=== PATIENT | female | born 1965 | race Caucasian/White ===

== ENCOUNTER → 2017-03-16 | Outpatient (CLI) | payer OTHER ==
[~2017-03-16] MED LIST: BREO ELLIPTA 11 EACH PO; CELEXA20 MG PO; ESTRACE1 M1 PO; NORCO 5-325 TA1 EACH PO; PROTONIX40 MG PO; ZOLOFT50 MG PO
== END | disposition home or self-care (01) ==
LOC: CARD 03-09 08:30
DX: R07.2 Precordial pain (principal)

== ENCOUNTER → 2017-05-30 | Outpatient (CLI) | payer OTHER | END | disposition home or self-care (01) | LOC: CT 09:04 | DX: K42.9 Umbilical hernia without obstruction or gangrene (principal); G89.18 Other acute postprocedural pain; R10.33 Periumbilical pain; Z90.49 Acquired absence of other specified parts of digestive tract ==

== ENCOUNTER → 2017-07-12 | Outpatient (CLI) | payer OTHER ==
--- NOTE | ~2017-07-12 | PF ---
[place], [place] PULMONARY FUNCTION TEST NAME: [facility]: [id number] UNIT #: [id number] ROOM: DOCTOR: ABBEY GOMEZ MD,BROCK BIRTHDATE: [birth year] DOS: 07/12/2017 ORDERED BY: Dr. Kathy Hoff. HISTORY OF PRESENT ILLNESS: The patient is a 51-year-old female, height of 62 inches, weight of 135 pounds with past diagnosis of bronchial asthma. The patient reported symptoms of dyspnea with exertion and rare wheezing. There were no past tobacco use. SPIROMETRY: The FVC was recorded 3.44 liters at 102% predicted value. The FEV1 was noted 2.90 liters at 109% predicted value. Ratio of FEV1/FVC was noted normal. Flow volume loop was noted as normal. The spirometry was considered normal. The patient's lung volumes, thoracic gas volume recorded 66%, residual volume 63%, total lung capacity 94%. Lung volumes were noted normal. The lung diffusion was noted normal as 94%. The patient's airway resistance and passive conductance were noted normal. FINAL IMPRESSION: Normal pulmonary function tests. BROCK POTTER MD CM:PFREPORT:PULMONARY FUNCTION TEST [id number] BROCK GOMEZ MD
== END | disposition home or self-care (01) ==
LOC: CP 12:12
DX: J45.909 Unspecified asthma, uncomplicated (principal)

== ENCOUNTER → 2017-11-16 | Outpatient (CLI) | payer OTHER | END | disposition home or self-care (01) | LOC: RAD 14:47 | DX: J45.909 Unspecified asthma, uncomplicated (principal) ==

== ENCOUNTER → 2017-11-30 | Day surgery (SDC) | payer OTHER ==
[~2017-11-30] VITALS: Ht 162.5 cm; Wt 63.5 kg
--- NOTE | ~2017-11-30 | PROC NOTE ---
[place], [place] PROCEDURE NOTE [id number] UNIT #: [id number] ROOM: DOCTOR: TAINA GARCIA MD BIRTHDATE: [birth year] DOS: PREOPERATIVE DIAGNOSES: Rectal bleeding, heartburn. POSTOPERATIVE DIAGNOSES: Rectal bleeding, heartburn. PROCEDURE: EGD with colonoscopy. ENDOSCOPIST: Taina Garcia MD SHUTTLELESS LOOM WEAVER: OVIDIO. ANESTHESIA: MAC. INDICATIONS: This is a 52-year-old lady who is here for a colonoscopy for rectal bleed and EGD for heartburn. Procedure and its complications were explained to the patient in detail preoperatively and she agreed to proceed. DESCRIPTION OF PROCEDURE: After identifying the patient, the patient was brought to the endoscopy suite and placed in the left lateral position. After IV sedation was administered, a timeout procedure was called. A bite block was placed and an adult gastroscope was introduced into the mouth and advanced sequentially into the pharynx, esophagus, stomach and first 2 parts of the duodenum. Each of these structures was found to be within normal limits. The scope was retroflexed in the stomach and then withdrawn. Attention was then turned towards the colonoscopy. A digital rectal exam was performed and was within normal limits. An adult colonoscope was now introduced into the anal canal and advanced sequentially into the rectum, sigmoid colon, descending colon, transverse colon, ascending colon up to the cecum. The prep was found to be optimal. Upon reaching the cecum, the scope was withdrawn. Total withdrawal time was approximately 6 minutes and 30 seconds. There was no obvious bleeding area that could be seen. There were no mucosal abnormalities. The scope was withdrawn and the patient was taken to the recovery in a stable fashion. There were no complications. Dr. Taina Garcia, the attending endoscopist, was present throughout the operating case. Taina Garcia MD CM:PROCNOTE:PROCEDURE NOTE [id number] TAINA GARCIA MD
[2017-11-30 11:52] VITALS: BP 120/68
[2017-11-30 13:24] VITALS: BP 109/61
[2017-11-30 13:35] VITALS: BP 117/68
[2017-11-30 13:51] VITALS: BP 126/71
== END | disposition home or self-care (01) ==
LOC: SDC 11-29 08:00
DX: K62.5 Hemorrhage of anus and rectum (principal); R12 Heartburn; F32.9 Major depressive disorder, single episode, unspecified; J45.909 Unspecified asthma, uncomplicated; Z90.710 Acquired absence of both cervix and uterus; Z90.49 Acquired absence of other specified parts of digestive tract; Z79.899 Other long term (current) drug therapy; Z82.49 Family history of ischemic heart disease and other diseases of the circulatory system

== ENCOUNTER → 2018-03-29 | Outpatient (CLI) | payer OTHER | END | disposition home or self-care (01) | LOC: RAD 11:53 | DX: M25.561 Pain in right knee (principal); Z91.81 History of falling ==

== ENCOUNTER → 2018-05-05 | Outpatient (CLI) | payer OTHER ==
[2018-05-05 07:19] LABS: BUN 21 mg/dl (7-24); CHLORIDE 108 mmol/L (98-107); CHOLESTEROL 215 mg/dL (<200); CREATININE 0.67 mg/dL (0.55-1.02); POTASSIUM 4.1 mmol/L (3.5-5.1); SGOT/AST 19 IU/L (3-35); SGPT/ALT 24 U/L (12-78); SODIUM 142 mmol/L (136-145); TOTAL PROTEIN 7.5 gm/dL (6.4-8.2)
[2018-05-05 07:20] LABS: ALKALINE PHOSPHATASE 73 U/L (45-117); HDL CHOLESTEROL 47 mg/dl (40-60); LDL CHOLESTEROL 147 mg/dL (9-159); TRIGLYCERIDES 107 mg/dl (<150); VLDL CHOLESTEROL 21 mg/dL (6-40)
== END | disposition home or self-care (01) ==
LOC: LAB 06:27
PROVIDERS: Internal Medicine
DX: Z13.220 Encounter for screening for lipoid disorders (principal)

== ENCOUNTER → 2018-12-10 | Outpatient (CLI) | payer OTHER ==
[~2018-12-10] MED LIST changes: +ALBUTEROL2.5 MG/0.5 INH; +PREDNISONE50 MG PO; +ZITHROMAX250 MG PO; +ZOFRAN4 MG PO
== END | disposition home or self-care (01) ==
LOC: ORTHO
DX: M25.521 Pain in right elbow (principal)

== ENCOUNTER → 2018-12-31 | Outpatient (CLI) | payer OTHER | END | disposition home or self-care (01) | LOC: RAD 09:17 | DX: M79.89 Other specified soft tissue disorders (principal); M25.521 Pain in right elbow ==

== ENCOUNTER → 2019-01-31 | Outpatient (CLI) | payer OTHER | END | disposition home or self-care (01) | LOC: MAMMO 09:00 | DX: Z12.31 Encounter for screening mammogram for malignant neoplasm of breast (principal) ==

== ENCOUNTER 2019-03-12 10:16 | Emergency (ER) | payer OTHER ==
[~2019-03-12] VITALS: Ht 162.5 cm; Wt 63.5 kg
[~2019-03-12 10:16] MED LIST changes: -ALBUTEROL2.5 MG/0.5 INH; -PREDNISONE50 MG PO; -ZITHROMAX250 MG PO; -ZOFRAN4 MG PO
[2019-03-12 10:37] LABS: BASO # 0.1 10*3/uL (0.0-0.1); BASO % 0.6 % (0.0-1.0); EOS # 0.9 10*3/uL (0.0-0.4); EOS % 8.9 % (1.0-4.0); HEMOGLOBIN 15.5 g/dl (12.0-16.0); LYMPH # 1.3 10*3/uL (1.3-4.4); LYMPH % 13.3 % (27.0-41.0); MEAN CELL VOLUME 91.5 fl (81.0-99.0); MEAN CORPUSCULAR HGB 30.8 pg (27.0-31.0); MEAN CORPUSCULAR HGB CONC 33.7 g/dl (33.0-37.0); MEAN PLATELET VOLUME 9.8 fl (9.6-12.3); MONO # 0.6 10*3/uL (0.1-1.0); MONO % 5.6 % (3.0-9.0); NEUT # 7.1 10*3/uL (2.3-7.9); NEUT % 71.3 % (47.0-73.0); PLATELET COUNT AUTOMATED 244 10*3/uL (130-400); RED BLOOD COUNT 5.03 10*6/uL (4.10-5.10); RED CELL DISTRI WIDTH 12.9 % (0-14.5); WHITE BLOOD COUNT 9.9 10*3/uL (4.8-10.8)
[2019-03-12 10:52] LABS: ALBUMIN 4.7 gm/dl (3.1-4.5); ALKALINE PHOSPHATASE 82 U/L (45-117); BUN 27 mg/dl (7-24); CHLORIDE 105 mmol/L (98-107); LIPASE 79 U/L (73-393); POTASSIUM 4.5 mmol/L (3.5-5.1); SGOT/AST 16 IU/L (3-35); SGPT/ALT 21 U/L (12-78); SODIUM 138 mmol/L (136-145); TOTAL PROTEIN 8.5 gm/dL (6.4-8.2)
[2019-03-12 11:42] VITALS: BP 117/63
[2019-03-12] MEDS ORDERED: ZOFRAN4 MG PO (11:45)
== END 2019-03-12 11:50 | disposition home or self-care (01) ==
LOC: ED 10:16
PROVIDERS: Physician Assistant
DX: K52.9 Noninfective gastroenteritis and colitis, unspecified (principal); Z79.899 Other long term (current) drug therapy; Z90.710 Acquired absence of both cervix and uterus; Z90.49 Acquired absence of other specified parts of digestive tract

== ENCOUNTER 2019-04-01 10:30 | Emergency (ER) | payer OTHER ==
[~2019-04-01] VITALS: Ht 160 cm; Wt 63.5 kg
[~2019-04-01 10:30] MED LIST changes: +ZOFRAN4 MG PO
[2019-04-01 10:32] VITALS: BP 128/77
[2019-04-01] MEDS ORDERED: PREDNISONE50 MG PO (11:34)
[2019-04-01] MEDS ORDERED: ZITHROMAX250 MG PO (11:34)
[2019-04-01] MEDS ORDERED: ALBUTEROL2.5 MG/0.5 INH (11:34)
== END 2019-04-01 11:45 | disposition home or self-care (01) ==
LOC: ED 10:30
DX: J20.9 Acute bronchitis, unspecified (principal); Z79.899 Other long term (current) drug therapy

== ENCOUNTER → 2019-04-17 | Outpatient (CLI) | payer OTHER ==
[~2019-04-17] MED LIST changes: +ALBUTEROL2.5 MG/0.5 INH; +PREDNISONE50 MG PO; +ZITHROMAX250 MG PO
== END | disposition home or self-care (01) ==
LOC: LAB 12:04
DX: R05 Cough (principal)

== ENCOUNTER → 2019-06-10 | Outpatient (CLI) | payer OTHER ==
[~2019-06-10] MED LIST changes: +ESOMEPRAZOLE MA20 MG PO; +ESTROVEN 155 M155 MG PO; +PROBIOTIC250 MG PO; +QVAR REDIHALE10.6 GM INH; +SINGULAIR10 M1 PO; +VIIBRYD20 M1 PO; +WOMEN'S 50 PLU1 EACH PO
--- NOTE | ~2019-06-10 | PF ---
[place], [place] PULMONARY FUNCTION TEST [id number] UNIT #: [id number] ROOM: DOCTOR: ABBEY GOMEZ MD,BROCK BIRTHDATE: [birth year] DOS: 06/10/2019 Ordered from office. HISTORY: The patient is a 53-year-old female, height of 64 inches, weight 239 pounds, BMI 23.9. . active tobacco use. There were no past tobacco use. SPIROMETRY: FVC 3.16 liters, 94% predicted value, FEV1 2.68 liters, 100% predicted value. Ratio FEV1/FVC 85%. Post-bronchodilator, no changes occurred. Flow volume loop was noted as mild obstructive airway. LUNG VOLUME: Thoracic gas volume recorded 75%, residual volume 78%, and total lung capacity 98%. The patient had resistance and passive conductance noted normal. The patient's lung diffusion noted borderline low normal range. FINAL IMPRESSION: Normal pulmonary function tests were noted. Clinical correlation would be advised. BROCK POTTER MD CM:PFREPORT:PULMONARY FUNCTION TEST [id number] BROCK GOMEZ MD
== END | disposition home or self-care (01) ==
LOC: CP 08:23
DX: J43.2 Centrilobular emphysema (principal)

== ENCOUNTER → 2019-07-02 | Outpatient (CLI) | payer OTHER | END | disposition home or self-care (01) | LOC: RESCLI 09:47 | DX: K21.9 Gastro-esophageal reflux disease without esophagitis (principal); J45.20 Mild intermittent asthma, uncomplicated; F41.9 Anxiety disorder, unspecified; J30.2 Other seasonal allergic rhinitis; R10.13 Epigastric pain; Z13.31 Encounter for screening for depression; Z13.39 Encounter for screening examination for other mental health and behavioral disorders; Z76.89 Persons encountering health services in other specified circumstances; Z79.899 Other long term (current) drug therapy; Z88.8 Allergy status to other drugs, medicaments and biological substances ==

== ENCOUNTER → 2019-07-03 | Outpatient (CLI) | payer OTHER ==
[2019-07-03 07:51] LABS: BASO # 0.1 10*3/uL (0.0-0.1); BASO % 1.2 % (0.0-1.0); EOS # 0.6 10*3/uL (0.0-0.4); EOS % 13.6 % (1.0-4.0); HEMATOCRIT 40.1 % (37.0-47.0); LYMPH # 1.1 10*3/uL (1.3-4.4); LYMPH % 25.2 % (27.0-41.0); MEAN CELL VOLUME 92.6 fl (81.0-99.0); MEAN CORPUSCULAR HGB CONC 32.4 g/dl (33.0-37.0); MEAN PLATELET VOLUME 9.7 fl (9.6-12.3); MONO # 0.4 10*3/uL (0.1-1.0); MONO % 9.9 % (3.0-9.0); NEUT # 2.2 10*3/uL (2.3-7.9); NEUT % 49.6 % (47.0-73.0); PLATELET COUNT AUTOMATED 208 10*3/uL (130-400); RED BLOOD COUNT 4.33 10*6/uL (4.10-5.10); RED CELL DISTRI WIDTH 12.9 % (0-14.5); WHITE BLOOD COUNT 4.3 10*3/uL (4.8-10.8)
[2019-07-03 08:11] LABS: ALBUMIN 3.9 gm/dl (3.1-4.5); ALKALINE PHOSPHATASE 71 U/L (45-117); BUN 17 mg/dl (7-24); CHLORIDE 106 mmol/L (98-107); CHOLESTEROL 203 mg/dL (<200); CREATININE 0.73 mg/dL (0.55-1.02); HDL CHOLESTEROL 47 mg/dl (40-60); LDL CHOLESTEROL 118 mg/dL (9-159); LIPASE 136 U/L (73-393); POTASSIUM 4.7 mmol/L (3.5-5.1); SGOT/AST 16 IU/L (3-35); SGPT/ALT 24 U/L (12-78); SODIUM 142 mmol/L (136-145); TOTAL PROTEIN 7.3 gm/dL (6.4-8.2); TRIGLYCERIDES 188 mg/dl (<150); VLDL CHOLESTEROL 38 mg/dL (6-40)
== END | disposition home or self-care (01) ==
LOC: LAB 00:15 → US 07:00
PROVIDERS: Internal Medicine
DX: K76.89 Other specified diseases of liver (principal); R10.13 Epigastric pain; Z76.89 Persons encountering health services in other specified circumstances; Z90.49 Acquired absence of other specified parts of digestive tract

== ENCOUNTER 2019-07-05 19:43 | Inpatient (IN) | payer OTHER ==
[~2019-07-05] VITALS: Ht 162.6 cm; Wt 65.3 kg
[~2019-07-05 19:43] MED LIST changes: -ESOMEPRAZOLE MA20 MG PO; -ESTROVEN 155 M155 MG PO; -PROBIOTIC250 MG PO; -QVAR REDIHALE10.6 GM INH; -SINGULAIR10 M1 PO; -VIIBRYD20 M1 PO; -WOMEN'S 50 PLU1 EACH PO
[2019-07-05 19:47] VITALS: BP 148/75
[2019-07-05 20:32] LABS: BASO % 0.4 % (0.0-1.0); EOS # 0.3 10*3/uL (0.0-0.4); HEMATOCRIT 44.1 % (37.0-47.0); HEMOGLOBIN 14.7 g/dl (12.0-16.0); LYMPH # 0.8 10*3/uL (1.3-4.4); LYMPH % 9.2 % (27.0-41.0); MEAN CELL VOLUME 90.9 fl (81.0-99.0); MEAN CORPUSCULAR HGB 30.3 pg (27.0-31.0); MEAN CORPUSCULAR HGB CONC 33.3 g/dl (33.0-37.0); MEAN PLATELET VOLUME 9.8 fl (9.6-12.3); MONO # 0.5 10*3/uL (0.1-1.0); MONO % 4.9 % (3.0-9.0); NEUT # 7.5 10*3/uL (2.3-7.9); NEUT % 82.3 % (47.0-73.0); PLATELET COUNT AUTOMATED 224 10*3/uL (130-400); RED BLOOD COUNT 4.85 10*6/uL (4.10-5.10); WHITE BLOOD COUNT 9.1 10*3/uL (4.8-10.8)
--- NOTE | 2019-07-05 20:38 | NUR ---
PATIENT STATES THAT HER PAIN IS MUCH BETTER THEN BEFORE. PATIENT STATES THAT HER PAIN IS A 5 OUT OF 10. NO COMPLAINTS AT THIS TIME.
[2019-07-05 20:44] LABS: ALBUMIN 4.4 gm/dl (3.1-4.5); ALKALINE PHOSPHATASE 80 U/L (45-117); BUN 25 mg/dl (7-24); CHLORIDE 107 mmol/L (98-107); CREATININE 0.75 mg/dL (0.55-1.02); LIPASE 94 U/L (73-393); POTASSIUM 3.5 mmol/L (3.5-5.1); SGOT/AST 25 IU/L (3-35); SGPT/ALT 31 U/L (12-78); SODIUM 139 mmol/L (136-145); TOTAL PROTEIN 8.1 gm/dL (6.4-8.2)
[2019-07-05 22:20] VITALS: BP 118/77
--- NOTE | 2019-07-05 22:20 | NUR ---
A 53, admitted to , under the services of JOSSELIN Hylton DO with a diagnosis of PARTIAL SMALL BOWEL OBSTRUCTION. Chief complaint is ABDOMINAL PAIN. Patient arrived via bed from ER. Monitor applied. Initial assessment completed. Vital signs taken and recorded. JOSSELIN HYLTON DO notified of admission to the unit. Orders received. See assessment for past medical history, medications and allergies. Patient and/or family oriented to unit. [address] visitation policy reviewed. Clothing/patient valuable form completed. NO WOUNDS ON ADMISSIONS. SKIN WDI. NO FLU VACCINE THIS ADMISSION PT HAS BEEN VACCINATED THIS FLU SEASON. BRIANNA NELSON
[2019-07-05] MEDS ORDERED: VIIBRYD20 M1 PO (22:26)
[2019-07-05] MEDS ORDERED: SINGULAIR10 M1 PO (22:26)
[2019-07-05] MEDS ORDERED: PROBIOTIC250 MG PO (22:27)
[2019-07-05] MEDS ORDERED: WOMEN'S 50 PLU1 EACH PO (22:27)
[2019-07-05] MEDS ORDERED: ESTROVEN 155 M155 MG PO (22:28)
--- NOTE | 2019-07-05 22:47 | NUR ---
PT REFUSING TEDS AT THIS TIME.
--- NOTE | 2019-07-05 22:47 | NUR ---
PT WILL NOT RECEIVE FLU VACCINE THIS ADMISSION SHE HAS BEEN VACCINATED THIS FLU SEASON.
--- NOTE | 2019-07-05 23:23 | NUR ---
DR HERNANDEZ NOTIFIED OF UPDATED MED REC AT THIS TIME. ALSO INFORMED HIM OF PT C/O LOOSE STOOLS. NO NEW ORDERS WILL CONTINUE TO MONITOR.
[2019-07-06] VITALS: BP 118/77
[2019-07-06 07:03] LABS: BUN 27 mg/dl (7-24); CHLORIDE 112 mmol/L (98-107); CREATININE 0.61 mg/dL (0.55-1.02); PHOSPHOROUS 3.5 mg/dL (2.5-4.9); POTASSIUM 3.7 mmol/L (3.5-5.1); SODIUM 143 mmol/L (136-145)
[2019-07-06 08:00] VITALS: BP 112/84
[2019-07-06 10:58] LABS: BILIRUBIN NEGATIVE (NEGATIVE); BLOOD 1+ (NEGATIVE); CLARITY SL CLOUDY (CLEAR); COLOR YELLOW (YELLOW); GLUCOSE NEGATIVE (NEGATIVE); KETONE NEGATIVE (NEGATIVE); LEUKO ESTERASE NEGATIVE (NEGATIVE); NITRITE NEGATIVE (NEGATIVE); SPECIFIC GRAVITY 1.025 (1.005-1.030); UROBILINOGEN 0.2 E.U./dl (0.2-1.0)
[2019-07-06 11:10] LABS: BACTERIA 2+; MUCOUS 2+
[2019-07-06 12:00] VITALS: BP 108/60
--- NOTE | 2019-07-06 14:59 | NUR ---
TYLEONOL GIVEN FOR C/O HAEADACHE. WILL MONITOR.
[2019-07-06 16:00] VITALS: BP 107/70
[2019-07-06 20:00] VITALS: BP 104/64
--- NOTE | 2019-07-06 22:00 | NUR ---
PATIENT RESTING IN BED WITH EYES OPEN WATCHING TV. DENIES COMPLAINTS OF PAIN OR DISCOMFORT. SAYS SHE STILL HAS DIARRHEA A LITTLE. RESPIRATIONS REGULAR AND NON-LABORED. VITAL SIGNS STABLE. LUNGS CLEAR ON ROOM AIR. WILL CONTINUE TO MOITOR. CALL LIGHT IN REACH.
[2019-07-07] VITALS: BP 113/64
[2019-07-07 06:26] LABS: BASO % 0.8 % (0.0-1.0); EOS # 0.6 10*3/uL (0.0-0.4); EOS % 14.4 % (1.0-4.0); HEMATOCRIT 37.3 % (37.0-47.0); HEMOGLOBIN 12.2 g/dl (12.0-16.0); LYMPH # 1.3 10*3/uL (1.3-4.4); LYMPH % 31.6 % (27.0-41.0); MEAN CELL VOLUME 92.6 fl (81.0-99.0); MEAN CORPUSCULAR HGB 30.3 pg (27.0-31.0); MEAN CORPUSCULAR HGB CONC 32.7 g/dl (33.0-37.0); MEAN PLATELET VOLUME 9.6 fl (9.6-12.3); MONO # 0.4 10*3/uL (0.1-1.0); MONO % 11.1 % (3.0-9.0); NEUT # 1.7 10*3/uL (2.3-7.9); NEUT % 41.8 % (47.0-73.0); PLATELET COUNT AUTOMATED 164 10*3/uL (130-400); RED BLOOD COUNT 4.03 10*6/uL (4.10-5.10)
[2019-07-07 06:51] LABS: ALBUMIN 3.4 gm/dl (3.1-4.5); ALKALINE PHOSPHATASE 57 U/L (45-117); BUN 13 mg/dl (7-24); CHLORIDE 114 mmol/L (98-107); CREATININE 0.71 mg/dL (0.55-1.02); POTASSIUM 3.8 mmol/L (3.5-5.1); SGOT/AST 29 IU/L (3-35); SGPT/ALT 34 U/L (12-78); SODIUM 145 mmol/L (136-145); TOTAL PROTEIN 6.2 gm/dL (6.4-8.2)
--- NOTE | 2019-07-07 08:00 | NUR ---
DR HERNANDEZ HERE TO ASSESS PATIENT AND DISCUSS PLAN OF CARE
[2019-07-07 09:00] VITALS: BP 138/79
--- NOTE | 2019-07-07 09:00 | NUR ---
RESTING IN BED WITH NO DISTRESS NOTED. RESPIRATIONS EASY. LUNGS DIMINISHED, CLEAR. PULSE OX 96% RA. ABD SOFT WITH HYPOACTIVE BOWEL SOUNDS, C/O LUQ TENDERNESS. DENIES N/V, CONTINUES TO HAVE LOOSE STOOLS. CALL LIGHT WITHIN REACH. NO VOICED COMPLAINTS.
--- NOTE | 2019-07-07 10:00 | NUR ---
AMBULATING HALLWAY. NO DISTRESS NOTED
--- NOTE | 2019-07-07 10:15 | NUR ---
DR GOLDBERG CONTACTED REGARDING CONSULT. WILL SEE TOMORROW
--- NOTE | 2019-07-07 10:55 | NUR ---
TRANSPORTED OFF FLOOR VIA WC FOR TESTING
--- NOTE | 2019-07-07 11:10 | NUR ---
RETURNED FROM TESTING
[2019-07-07 12:00] VITALS: BP 118/70
[2019-07-07] MEDS ORDERED: ESOMEPRAZOLE MA20 MG PO (12:31)
[2019-07-07] MEDS ORDERED: QVAR REDIHALE10.6 GM INH (12:31)
--- NOTE | 2019-07-07 13:00 | NUR ---
VISITING WITH FAMILY. NO DISTRESS NOTED
[2019-07-07 16:00] VITALS: BP 108/61
--- NOTE | 2019-07-07 16:00 | NUR ---
RESTING IN BED WITH NO DISTRESS NOTED. RESPIRATIONS EASY. VSS. CALL LIGHT WITHIN REACH. NO VOICED COMPLAINTS
[2019-07-07 20:00] VITALS: BP 100/65
--- NOTE | 2019-07-07 22:30 | NUR ---
PATIENT WALKED UP TO NURSE'S STATION VISITING WITH STAFF AT THIS TIME. RESPIRATIONS REGULAR AND NON-LABORED ON ROOM AIR. DENIES COMPLAINTS OF PAIN OR DISCOMFORT. STATES SHE IS FEELING BETTER TODAY BUT IS STILL A LITTLE CRAMPY. NO SIGNS OR SYMPTOMS OF DISTRESS NOTED. WILL CONTINUE TO MONITOR. CALL LIGHT IN REACH.
[2019-07-08] VITALS: BP 124/66
--- NOTE | 2019-07-08 01:23 | NUR ---
24 HR chart check completed.
[2019-07-08 08:00] VITALS: BP 135/88
--- NOTE | 2019-07-08 09:00 | NUR ---
Web Producer in to talk to patient. Patient states lives at home with . There are few steps in the home. Physician: [facility] Pharmacy: [facility] Home health services: none Patient's level of ADLs: INDEPENDENT Patient has working utilities: all working DME: none Follow-up physician's appointment after d/c: will be made by hospitalist nurse director upon discharge Does patient want to access PORTAL?: no Discharge plan discussed with patient, she states she lives at home with , she is independent in adls and ambulation works, drives, she will return to home when medically stable and denies any home needs. NIXON MCKEON
--- NOTE | 2019-07-08 10:31 | NUR ---
Dr. Mendiola in and examined pt. States pt may go home from his standpoint. Notified Senait Torres NP.
--- NOTE | 2019-07-08 11:07 | NUR ---
Discharge instructions reviewed with patient/family. Patient receptive and verbalizes understanding. Follow-up care arranged. Written instructions given to patient/family. Pt declined assistance out. DC via ambulatory, iv site removed. LAVINIA ROGERS
== END 2019-07-08 11:07 | disposition home or self-care (01) | DRG 390 ==
LOC: ED 19:43 → 4E 22:01 → EDHOLD 22:01 → 4E 22:10
PROVIDERS: Nurse Practitioner Family; Student in an Organized Health Care Education/Training Program; ADMIT Emergency Medicine
DX: K56.600 Partial intestinal obstruction, unspecified as to cause (principal); K76.89 Other specified diseases of liver; K59.00 Constipation, unspecified; J45.909 Unspecified asthma, uncomplicated; K57.90 Diverticulosis of intestine, part unspecified, without perforation or abscess without bleeding; R73.9 Hyperglycemia, unspecified; E83.41 Hypermagnesemia; F32.9 Major depressive disorder, single episode, unspecified; Z90.49 Acquired absence of other specified parts of digestive tract; Z90.710 Acquired absence of both cervix and uterus; Z82.49 Family history of ischemic heart disease and other diseases of the circulatory system; Z80.3 Family history of malignant neoplasm of breast; Z79.899 Other long term (current) drug therapy

== ENCOUNTER → 2019-07-05 | Outpatient (CLI) | payer OTHER | END | disposition home or self-care (01) | LOC: CT 11:55 | DX: R10.13 Epigastric pain (principal) ==

== ENCOUNTER → 2019-08-07 | Outpatient (CLI) | payer OTHER ==
[~2019-08-07] MED LIST changes: +ESOMEPRAZOLE MA20 MG PO; +ESTROVEN 155 M155 MG PO; +PROBIOTIC250 MG PO; +QVAR REDIHALE10.6 GM INH; +SINGULAIR10 M1 PO; +VIIBRYD20 M1 PO; +WOMEN'S 50 PLU1 EACH PO
== END | disposition home or self-care (01) ==
LOC: RESCLI 01:15
DX: Z09 Encounter for follow-up examination after completed treatment for conditions other than malignant neoplasm (principal); J45.20 Mild intermittent asthma, uncomplicated; J30.2 Other seasonal allergic rhinitis; K21.9 Gastro-esophageal reflux disease without esophagitis; N95.1 Menopausal and female climacteric states; F41.9 Anxiety disorder, unspecified; E78.5 Hyperlipidemia, unspecified; Z79.899 Other long term (current) drug therapy; Z90.49 Acquired absence of other specified parts of digestive tract; Z90.89 Acquired absence of other organs

== ENCOUNTER → 2020-02-12 | Outpatient (CLI) | payer OTHER | END | disposition home or self-care (01) | LOC: RAD 10:42 | DX: K59.00 Constipation, unspecified (principal) ==

== ENCOUNTER → 2020-02-13 | Outpatient (CLI) | payer OTHER | END | disposition home or self-care (01) | LOC: CT 10:12 | DX: K42.9 Umbilical hernia without obstruction or gangrene (principal); K59.00 Constipation, unspecified; K76.89 Other specified diseases of liver; Z87.19 Personal history of other diseases of the digestive system; Z90.710 Acquired absence of both cervix and uterus; Z90.49 Acquired absence of other specified parts of digestive tract ==

== ENCOUNTER → 2020-04-17 | Outpatient (CLI) | payer OTHER ==
[~2020-04-17] MED LIST changes: +CELEXA10 MG PO
== END | disposition home or self-care (01) ==
LOC: COVID19 00:49
DX: Z20.828 Contact with and (suspected) exposure to other viral communicable diseases (principal)

== ENCOUNTER → 2020-04-24 | Day surgery (SDC) | payer OTHER ==
[~2020-04-24] VITALS: Ht 160 cm; Wt 67.1 kg
[2020-04-24 07:30] VITALS: BP 126/72
[2020-04-24 08:29] VITALS: BP 98/54
[2020-04-24 08:44] VITALS: BP 104/65
[2020-04-24 08:59] VITALS: BP 101/61
== END | disposition home or self-care (01) ==
LOC: SDC 04-21 08:00
PROVIDERS: ATTEND Internal Medicine Gastroenterology
DX: R10.9 Unspecified abdominal pain (principal); K56.609 Unspecified intestinal obstruction, unspecified as to partial versus complete obstruction; K44.9 Diaphragmatic hernia without obstruction or gangrene; K29.70 Gastritis, unspecified, without bleeding; K64.8 Other hemorrhoids; K21.9 Gastro-esophageal reflux disease without esophagitis; F41.9 Anxiety disorder, unspecified; J45.909 Unspecified asthma, uncomplicated; Z98.890 Other specified postprocedural states; Z79.899 Other long term (current) drug therapy; Z82.49 Family history of ischemic heart disease and other diseases of the circulatory system

== ENCOUNTER → 2020-06-26 | Outpatient (CLI) | payer OTHER ==
[2020-06-26 06:05] LABS: BASO # 0.1 10*3/uL (0.0-0.1); BASO % 1.2 % (0.0-1.0); EOS # 0.6 10*3/uL (0.0-0.4); EOS % 12.4 % (1.0-4.0); HEMATOCRIT 40.6 % (37.0-47.0); LYMPH # 1.7 10*3/uL (1.3-4.4); LYMPH % 33.7 % (27.0-41.0); MEAN CELL VOLUME 89.4 fl (81.0-99.0); MEAN CORPUSCULAR HGB 29.5 pg (27.0-31.0); MEAN PLATELET VOLUME 9.5 fl (9.6-12.3); MONO # 0.4 10*3/uL (0.1-1.0); MONO % 8.7 % (3.0-9.0); NEUT # 2.2 10*3/uL (2.3-7.9); NEUT % 43.6 % (47.0-73.0); PLATELET COUNT AUTOMATED 203 10*3/uL (130-400); RED BLOOD COUNT 4.54 10*6/uL (4.10-5.10); RED CELL DISTRI WIDTH 12.5 % (0-14.5); WHITE BLOOD COUNT 5.1 10*3/uL (4.8-10.8)
[2020-06-26 06:34] LABS: BUN 17 mg/dl (7-24); CHLORIDE 109 mmol/L (98-107); CHOLESTEROL 229 mg/dL (<200); CREATININE 0.69 mg/dL (0.55-1.02); POTASSIUM 3.9 mmol/L (3.5-5.1); SGOT/AST 17 IU/L (3-35); SGPT/ALT 21 U/L (12-78); SODIUM 142 mmol/L (136-145); TOTAL PROTEIN 7.4 gm/dL (6.4-8.2); TRIGLYCERIDES 140 mg/dl (<150); VLDL CHOLESTEROL 28 mg/dL (6-40)
[2020-06-26 06:40] LABS: ALKALINE PHOSPHATASE 66 U/L (45-117); HDL CHOLESTEROL 50 mg/dl (40-60); LDL CHOLESTEROL 151 mg/dL (9-159)
[2020-06-26 07:23] LABS: VITAMIN D, 25-HYDROXY 43.6 ng/mL (30-100)
== END | disposition home or self-care (01) ==
LOC: LAB 05:42
PROVIDERS: Student in an Organized Health Care Education/Training Program; ATTEND Internal Medicine Nephrology
DX: F32.9 Major depressive disorder, single episode, unspecified (principal); R53.83 Other fatigue

== ENCOUNTER 2020-12-15 14:28 | Emergency (ER) | payer OTHER ==
[~2020-12-15] VITALS: Ht 160 cm; Wt 65.8 kg
[2020-12-15 14:32] VITALS: BP 128/78
== END 2020-12-15 16:39 | disposition home or self-care (01) ==
LOC: ED 14:28
DX: S82.61XA Displaced fracture of lateral malleolus of right fibula, initial encounter for closed fracture (principal); Z79.899 Other long term (current) drug therapy; Z90.49 Acquired absence of other specified parts of digestive tract; Z90.711 Acquired absence of uterus with remaining cervical stump; W18.40XA Slipping, tripping and stumbling without falling, unspecified, initial encounter; Y93.89 Activity, other specified; Y92.89 Other specified places as the place of occurrence of the external cause; Y99.8 Other external cause status

== ENCOUNTER → 2020-12-17 | Outpatient (CLI) | payer OTHER | END | disposition home or self-care (01) | LOC: ORTHO 13:20 | PROVIDERS: ATTEND Orthopaedic Surgery | DX: S82.61XD Displaced fracture of lateral malleolus of right fibula, subsequent encounter for closed fracture with routine healing (principal); X58.XXXD Exposure to other specified factors, subsequent encounter ==

== ENCOUNTER → 2020-12-24 | Outpatient (CLI) | payer OTHER | END | disposition home or self-care (01) | LOC: ORTHO 13:42 | PROVIDERS: ATTEND Orthopaedic Surgery | DX: S82.61XD Displaced fracture of lateral malleolus of right fibula, subsequent encounter for closed fracture with routine healing (principal); X58.XXXD Exposure to other specified factors, subsequent encounter ==

== ENCOUNTER → 2020-12-31 | Outpatient (CLI) | payer OTHER | END | disposition home or self-care (01) | LOC: ORTHO 00:35 | PROVIDERS: ATTEND Orthopaedic Surgery | DX: S82.61XD Displaced fracture of lateral malleolus of right fibula, subsequent encounter for closed fracture with routine healing (principal); X58.XXXD Exposure to other specified factors, subsequent encounter ==

== ENCOUNTER → 2021-01-22 | Outpatient (CLI) | payer OTHER | END | disposition home or self-care (01) | LOC: ORTHO 01:57 | PROVIDERS: ATTEND Orthopaedic Surgery | DX: S82.844D Nondisplaced bimalleolar fracture of right lower leg, subsequent encounter for closed fracture with routine healing (principal); X58.XXXD Exposure to other specified factors, subsequent encounter ==

== ENCOUNTER → 2021-01-27 | Outpatient (CLI) | payer OTHER | END | disposition home or self-care (01) | LOC: ORTHO 01:57 → RAD 18:53 → ORTHO 18:57 | PROVIDERS: ATTEND Orthopaedic Surgery | DX: S82.434D Nondisplaced oblique fracture of shaft of right fibula, subsequent encounter for closed fracture with routine healing (principal); X58.XXXD Exposure to other specified factors, subsequent encounter ==

== ENCOUNTER → 2021-03-08 | Outpatient (CLI) | payer OTHER | END | disposition home or self-care (01) | LOC: ORTHO 00:17 | PROVIDERS: ATTEND Orthopaedic Surgery | DX: S82.431A Displaced oblique fracture of shaft of right fibula, initial encounter for closed fracture (principal); M25.471 Effusion, right ankle; S82.844D Nondisplaced bimalleolar fracture of right lower leg, subsequent encounter for closed fracture with routine healing; X58.XXXD Exposure to other specified factors, subsequent encounter; X58.XXXA Exposure to other specified factors, initial encounter; Y93.89 Activity, other specified; Y92.89 Other specified places as the place of occurrence of the external cause; Y99.8 Other external cause status ==

== ENCOUNTER → 2021-05-09 | Outpatient (CLI) | payer OTHER | END | disposition home or self-care (01) | LOC: RAD 08:02 | PROVIDERS: ATTEND Internal Medicine | DX: M25.571 Pain in right ankle and joints of right foot (principal); R22.41 Localized swelling, mass and lump, right lower limb; Z87.81 Personal history of (healed) traumatic fracture ==

== ENCOUNTER → 2021-09-01 | Outpatient (CLI) | payer OTHER | END | disposition home or self-care (01) | LOC: MRI 00:40 | PROVIDERS: ATTEND Student in an Organized Health Care Education/Training Program | DX: G93.89 Other specified disorders of brain (principal); R42 Dizziness and giddiness ==

== ENCOUNTER → 2022-03-24 | Outpatient (CLI) | payer OTHER | END | disposition home or self-care (01) | LOC: RESCLI 10:09 | PROVIDERS: ATTEND Emergency Medicine | DX: K21.9 Gastro-esophageal reflux disease without esophagitis (principal); F32.9 Major depressive disorder, single episode, unspecified; J45.20 Mild intermittent asthma, uncomplicated; J30.1 Allergic rhinitis due to pollen; N95.2 Postmenopausal atrophic vaginitis; Z79.899 Other long term (current) drug therapy; Z88.8 Allergy status to other drugs, medicaments and biological substances; Z90.49 Acquired absence of other specified parts of digestive tract ==

== ENCOUNTER 2022-05-10 09:48 | Emergency (ER) | payer OTHER ==
[2022-05-10 10:01] VITALS: BP 112/84
[2022-05-11 07:06] LABS: HEPATITIS B SURFACE AB Reactive (.)
== END 2022-05-10 11:01 | disposition home or self-care (01) ==
LOC: ED 09:48
PROVIDERS: Emergency Medicine
DX: S61.031A Puncture wound without foreign body of right thumb without damage to nail, initial encounter (principal); Z79.899 Other long term (current) drug therapy; Z90.710 Acquired absence of both cervix and uterus; Z90.49 Acquired absence of other specified parts of digestive tract; Z90.89 Acquired absence of other organs; W46.0XXA Contact with hypodermic needle, initial encounter; Y93.89 Activity, other specified; Y92.89 Other specified places as the place of occurrence of the external cause; Y99.8 Other external cause status

== ENCOUNTER → 2022-06-23 | Outpatient (CLI) | payer OTHER | END | disposition home or self-care (01) | LOC: MAMMO 06-08 11:00 | PROVIDERS: ATTEND Nurse Practitioner Women's Health | DX: Z12.31 Encounter for screening mammogram for malignant neoplasm of breast (principal) ==

== ENCOUNTER → 2022-08-15 | Outpatient (CLI) | payer OTHER ==
[~2022-08-15] MED LIST changes: +CLARITIN10 MG PO; +LEXAPRO20 MG PO
== END | disposition home or self-care (01) ==
LOC: RESCLI 13:47
PROVIDERS: ATTEND Internal Medicine
DX: R07.9 Chest pain, unspecified (principal); F32.9 Major depressive disorder, single episode, unspecified; R06.02 Shortness of breath; J45.20 Mild intermittent asthma, uncomplicated; K21.9 Gastro-esophageal reflux disease without esophagitis; F41.9 Anxiety disorder, unspecified; Z88.8 Allergy status to other drugs, medicaments and biological substances; Z72.89 Other problems related to lifestyle; Z90.49 Acquired absence of other specified parts of digestive tract; Z98.890 Other specified postprocedural states; Z79.899 Other long term (current) drug therapy

== ENCOUNTER → 2022-08-16 | Outpatient (CLI) | payer OTHER ==
[2022-08-16 11:22] LABS: BASO # 0.1 10*3/uL (0.0-0.1); BASO % 1.5 % (0.0-1.0); EOS # 0.7 10*3/uL (0.0-0.4); EOS % 14.5 % (1.0-4.0); HEMATOCRIT 41.1 % (37.0-47.0); LYMPH # 1.3 10*3/uL (1.3-4.4); LYMPH % 27.9 % (27.0-41.0); MEAN CELL VOLUME 89.3 fl (81.0-99.0); MEAN CORPUSCULAR HGB 30.2 pg (27.0-31.0); MEAN CORPUSCULAR HGB CONC 33.8 g/dl (33.0-37.0); MEAN PLATELET VOLUME 9.5 fl (9.6-12.3); MONO # 0.3 10*3/uL (0.1-1.0); MONO % 6.7 % (3.0-9.0); NEUT # 2.3 10*3/uL (2.3-7.9); PLATELET COUNT AUTOMATED 218 10*3/uL (130-400); RED CELL DISTRI WIDTH 12.6 % (0-14.5); WHITE BLOOD COUNT 4.6 10*3/uL (4.8-10.8)
[2022-08-16 11:44] LABS: ALKALINE PHOSPHATASE 72 U/L (46-116); BUN 13 mg/dl (9-23); CHLORIDE 104 mmol/L (98-107); CHOLESTEROL 245 mg/dL (<200); CREATININE 0.73 mg/dL (0.55-1.02); LDL CHOLESTEROL 167 mg/dL (9-159); SGPT/ALT 13 U/L (10-49); SODIUM 139 mmol/L (136-145); TRIGLYCERIDES 165 mg/dl (<150)
== END | disposition home or self-care (01) ==
LOC: LAB 02:43
PROVIDERS: ATTEND Student in an Organized Health Care Education/Training Program
DX: Z79.899 Other long term (current) drug therapy (principal)

== ENCOUNTER → 2022-08-18 | Outpatient (CLI) | payer OTHER | END | disposition home or self-care (01) | LOC: CARD 01:05 | PROVIDERS: ATTEND Internal Medicine Cardiovascular Disease | DX: R06.02 Shortness of breath (principal); R07.9 Chest pain, unspecified ==

== ENCOUNTER → 2022-10-05 | Outpatient (CLI) | payer OTHER | END | disposition home or self-care (01) | LOC: CT 12:00 | PROVIDERS: ATTEND Specialist | DX: J32.0 Chronic maxillary sinusitis (principal); M19.90 Unspecified osteoarthritis, unspecified site; J34.2 Deviated nasal septum ==

== ENCOUNTER → 2023-05-26 | Outpatient (CLI) | payer OTHER | END | disposition home or self-care (01) | LOC: RESCLI 14:39 | PROVIDERS: ATTEND Internal Medicine | DX: F41.9 Anxiety disorder, unspecified (principal); J45.20 Mild intermittent asthma, uncomplicated; G25.81 Restless legs syndrome; E78.5 Hyperlipidemia, unspecified; R53.83 Other fatigue; Z88.8 Allergy status to other drugs, medicaments and biological substances; Z98.890 Other specified postprocedural states; Z79.899 Other long term (current) drug therapy ==

== ENCOUNTER → 2023-06-12 | Outpatient (CLI) | payer OTHER ==
[2023-06-12 12:03] LABS: BILIRUBIN Negative (Negative); BLOOD Negative (Negative); CLARITY Clear (Clear); COLOR Yellow (Yellow); GLUCOSE Trace (Negative); KETONE Trace (Negative); LEUKO ESTERASE Negative (Negative); NITRITE Negative (Negative); PH 6.5 (4.5-8.0); SPECIFIC GRAVITY >= 1.030 (1.001-1.030)
[2023-06-12 12:38] LABS: EPITHELIAL CELLS 16-20; MUCOUS TRACE; WBC 0-2 wbc/hpf (0-5)
== END | disposition home or self-care (01) ==
LOC: LAB 08:50
PROVIDERS: ATTEND Internal Medicine
DX: N12 Tubulo-interstitial nephritis, not specified as acute or chronic (principal); N30.00 Acute cystitis without hematuria

== ENCOUNTER → 2023-12-07 | Outpatient (CLI) | payer OTHER | END | disposition home or self-care (01) | LOC: LAB 10:15 | PROVIDERS: ATTEND Nurse Practitioner Women's Health | DX: Z80.3 Family history of malignant neoplasm of breast (principal) ==

== ENCOUNTER → 2023-12-14 | Outpatient (CLI) | payer OTHER ==
[2023-12-14 09:05] LABS: FREE T4 0.95 ng/dl (0.89-1.76)
== END | disposition home or self-care (01) ==
LOC: LAB 08:04
PROVIDERS: ATTEND Student in an Organized Health Care Education/Training Program
DX: R53.82 Chronic fatigue, unspecified (principal)

== ENCOUNTER → 2024-03-12 | Outpatient (CLI) | payer OTHER | END | disposition home or self-care (01) | LOC: MAMMO 13:19 | PROVIDERS: ATTEND Nurse Practitioner Women's Health | DX: Z12.31 Encounter for screening mammogram for malignant neoplasm of breast (principal) ==

== ENCOUNTER → 2024-06-13 | Outpatient (CLI) | payer OTHER | LOC: RESCLI 08:23 | PROVIDERS: ATTEND Family Medicine | DX: F41.9 Anxiety disorder, unspecified (principal); E55.9 Vitamin D deficiency, unspecified; J30.2 Other seasonal allergic rhinitis; E78.5 Hyperlipidemia, unspecified; G25.81 Restless legs syndrome; R53.82 Chronic fatigue, unspecified; J45.20 Mild intermittent asthma, uncomplicated; J44.89 Other specified chronic obstructive pulmonary disease; K21.9 Gastro-esophageal reflux disease without esophagitis; Z98.890 Other specified postprocedural states; Z88.8 Allergy status to other drugs, medicaments and biological substances; Z90.49 Acquired absence of other specified parts of digestive tract; Z79.899 Other long term (current) drug therapy ==

== ENCOUNTER → 2024-06-14 | Outpatient (CLI) | payer OTHER ==
[2024-06-14 07:06] LABS: BASO # 0.1 10*3/uL (0.0-0.1); BASO % 1.1 % (0.0-1.0); EOS # 0.6 10*3/uL (0.0-0.4); EOS % 12.9 % (1.0-4.0); HEMATOCRIT 40.3 % (37.0-47.0); LYMPH # 1.3 10*3/uL (1.3-4.4); LYMPH % 29.6 % (27.0-41.0); MEAN CELL VOLUME 90.6 fl (81.0-99.0); MEAN CORPUSCULAR HGB 30.1 pg (27.0-31.0); MEAN CORPUSCULAR HGB CONC 33.3 g/dl (33.0-37.0); MEAN PLATELET VOLUME 9.4 fl (9.6-12.3); MONO # 0.4 10*3/uL (0.1-1.0); MONO % 8.6 % (3.0-9.0); NEUT # 2.1 10*3/uL (2.3-7.9); NEUT % 47.6 % (47.0-73.0); PLATELET COUNT AUTOMATED 185 10*3/uL (130-400); RED BLOOD COUNT 4.45 10*6/uL (4.10-5.10); RED CELL DISTRI WIDTH 12.5 % (0-14.5); WHITE BLOOD COUNT 4.4 10*3/uL (4.8-10.8)
[2024-06-14 07:40] LABS: BUN 15 mg/dl (9-23); CHLORIDE 105 mmol/L (98-107); CHOLESTEROL 239 mg/dL (<200); LDL CHOLESTEROL 169 mg/dL (9-159); POTASSIUM 4.1 mmol/L (3.4-5.1); TRIGLYCERIDES 132 mg/dl (<150)
== END | disposition home or self-care (01) ==
LOC: LAB 01:15
PROVIDERS: ATTEND Student in an Organized Health Care Education/Training Program
DX: E78.5 Hyperlipidemia, unspecified (principal); E55.9 Vitamin D deficiency, unspecified

== ENCOUNTER → 2024-10-03 | Outpatient (CLI) | payer OTHER | END | disposition home or self-care (01) | LOC: LAB 09:23 | PROVIDERS: ATTEND Student in an Organized Health Care Education/Training Program | DX: J06.9 Acute upper respiratory infection, unspecified (principal); Z20.828 Contact with and (suspected) exposure to other viral communicable diseases ==

== ENCOUNTER → 2024-10-09 | Outpatient (CLI) | payer OTHER ==
[2024-10-09 08:57] LABS: BASO % 0.8 % (0.0-1.0); EOS # 0.4 10*3/uL (0.0-0.4); EOS % 8.2 % (1.0-4.0); HEMATOCRIT 40.6 % (37.0-47.0); MEAN CELL VOLUME 89.8 fl (81.0-99.0); MEAN CORPUSCULAR HGB 29.9 pg (27.0-31.0); MEAN CORPUSCULAR HGB CONC 33.3 g/dl (33.0-37.0); MEAN PLATELET VOLUME 8.7 fl (9.6-12.3); MONO # 0.4 10*3/uL (0.1-1.0); MONO % 8.8 % (3.0-9.0); NEUT # 2.5 10*3/uL (2.3-7.9); PLATELET COUNT AUTOMATED 174 10*3/uL (130-400); RED BLOOD COUNT 4.52 10*6/uL (4.10-5.10); WHITE BLOOD COUNT 4.9 10*3/uL (4.8-10.8)
[2024-10-09 09:38] LABS: ALKALINE PHOSPHATASE 80 U/L (46-116); BUN 21 mg/dl (9-23); CHLORIDE 104 mmol/L (98-107); CHOLESTEROL 113 mg/dL (<200); LDL CHOLESTEROL 35 mg/dL (9-159); POTASSIUM 3.7 mmol/L (3.4-5.1); SGPT/ALT 26 U/L (5-49); TOTAL PROTEIN 6.6 gm/dL (6.0-8.0); TRIGLYCERIDES 212 mg/dl (<150)
[2024-10-09 09:39] LABS: VITAMIN D, 25-HYDROXY 60.6 ng/mL (30-100)
== END | disposition home or self-care (01) ==
LOC: LAB 08:12 → RESCLI 08:12
PROVIDERS: ATTEND Family Medicine
DX: J18.9 Pneumonia, unspecified organism (principal); R05.9 Cough, unspecified; R06.02 Shortness of breath

== ENCOUNTER → 2025-06-26 | Outpatient (CLI) | payer OTHER ==
[~2025-06-26] MED LIST changes: +IOHEXOL 12 MG/ML (IODINE) ORAL SOLUTION PO ONE; +IOHEXOL 300 MG/ML 100 ML VIAL IV ONE; +IOHEXOL 9 MG/ML (IODINE) ORAL SOLUTION PO ONE
[2025-06-26 11:52] LABS: BASO # 0.1 10*3/uL (0.0-0.1); BASO % 0.7 % (0.0-1.0); EOS # 0.9 10*3/uL (0.0-0.4); EOS % 13.2 % (1.0-4.0); MEAN CELL VOLUME 90.3 fl (81.0-99.0); MEAN CORPUSCULAR HGB 30.2 pg (27.0-31.0); MEAN PLATELET VOLUME 9.3 fl (9.6-12.3); MONO # 0.5 10*3/uL (0.1-1.0); MONO % 7.4 % (3.0-9.0); NEUT # 3.9 10*3/uL (2.3-7.9); NEUT % 58.2 % (47.0-73.0); NUCLEATED RED BLOOD CELL 0.0 % (0.0-0.0); NUCLEATED RED BLOOD CELL 0.0 10*3/uL (0.0-0.0); PLATELET COUNT AUTOMATED 180 10*3/uL (130-400); RED CELL DISTRI WIDTH 12.6 % (0-14.5)
[2025-06-26 12:11] LABS: BILIRUBIN Negative (Negative); BLOOD 1+ (Negative); CLARITY Clear (Clear); COLOR Yellow (Yellow); KETONE Negative (Negative); LEUKO ESTERASE Negative (Negative); NITRITE Negative (Negative); PH 5.5 (4.5-8.0); SPECIFIC GRAVITY <= 1.005 (1.001-1.030); UROBILINOGEN 0.2 E.U./dl (0.0-1.0)
[2025-06-26 12:23] LABS: BUN 18 mg/dl (9-23); LDL CHOLESTEROL 167 mg/dL (9-159)
[2025-06-26 12:41] LABS: BACTERIA TRACE; WBC 0-2 wbc/hpf (0-5)
== END | disposition home or self-care (01) ==
LOC: CT 11:00 → LAB 11:10 → CT 11:10
PROVIDERS: ATTEND Student in an Organized Health Care Education/Training Program
DX: R10.9 Unspecified abdominal pain (principal)